=== PATIENT | female | born 2000 | race Asian ===

== ENCOUNTER 2018-07-03 21:51 | Emergency (ER) | payer OTHER ==
[2018-07-03 22:09] VITALS: BP 120/82
--- NOTE | 2018-07-03 23:06 | UC ---
Hand/Wrist HPI - HPI Summary HPI Summary: WAS SNOWBOARDING AT [employer] WHEN SHE FELL AND LANDED ON HER LEFT WRIST. HAS PAIN. - History Of Current Complaint Chief Complaint: UCUpperExtremity Stated Complaint: WRIST INJURY Time Seen by Provider: 07/03/18 22:04 Hx Obtained From: Patient Hx Last Menstrual Period: 07/01/2018 Onset/Duration: Sudden Onset, Lasting Hours, Still Present Severity Initially: Moderate Severity Currently: Moderate Pain Intensity: 7 Pain Scale Used: 0-10 Numeric Character Of Pain: Sharp Aggravating Factor(s): Movement Alleviating Factor(s): Rest, Ice Related History: Dominant Hand Right - Allergies/Home Medications Allergies/Adverse Reactions: Allergies Allergy/AdvReac Type Severity Reaction Status Date / Time No Known Allergies Allergy Verified 07/03/18 22:10 PMH/Surg Hx/FS Hx/Imm Hx Previously Healthy: Yes - Surgical History Surgical History: None - Family History Known Family History: Positive: Non-Contributory - Social History Alcohol Use: None Substance Use Type: None Smoking Status (MU): Never Smoked Tobacco Review of Systems All Other Systems Reviewed And Are Negative: Yes Constitutional: Positive: Negative Skin: Positive: Negative Respiratory: Positive: Negative Cardiovascular: Positive: Negative Gastrointestinal: Positive: Negative Musculoskeletal: Positive: Arthralgia, Decreased ROM Physical Exam Triage Information Reviewed: Yes Appearance: Well-Appearing, No Pain Distress, Well-Nourished Vital Signs: Initial Vital Signs Temp 99.1 F 07/03/18 22:06 Pulse 80 07/03/18 22:06 Resp 18 07/03/18 22:06 BP 120/82 07/03/18 22:06 Pulse Ox 98 07/03/18 22:06 Vital Signs Reviewed: Yes Eyes: Positive: Conjunctiva Clear ENT: Positive: Hearing grossly normal Neck: Positive: Supple Respiratory: Positive: No respiratory distress, No accessory muscle use Cardiovascular: Positive: Pulses Normal Abdomen Description: Positive: Soft Musculoskeletal: Positive: No Edema, ROM Limited @ - LEFT WRIST, Other: - TTP DISTAL RADIUS Neurological: Positive: Alert Psychological: Positive: Age Appropriate Behavior Skin: Negative: Rashes Diagnostics - Radiology LEFT WRIST XRAY Radiology Interpretation Completed By: ED Physician Summary of Radiographic Findings: NONDISPLACED FRACTURE DISTAL RADIUS Hand/Wrist Course/Dx - Differential Dx/Diagnosis Provider Diagnosis: Nondisplaced fracture of distal end of left radius Discharge - Sign-Out/Discharge Documenting (check all that apply): Patient Departure All imaging exams completed and their final reports reviewed: No - Discharge Plan Condition: Stable Disposition: HOME Prescriptions: HYDROcodone/ACETAMIN 5-325 MG* [[place] 5-325 TAB*] 1 tab PO Q8H PRN #6 tab MDD 2 PRN Reason: Pain Patient Education Materials: Wrist Fracture in Adults (ED) Forms: *Gen. Provider Communication Referrals: Malachi Abreu MD [Medical Doctor] - 2 Days Additional Instructions: XRAY TODAY SHOWS A FRACTURE OF YOUR DISTAL RADIUS ON MY PRELIMINARY READ. OFFICIAL RADIOLOGY READ IS PENDING AND WE WILL CALL YOU TOMORROW IF THE RADIOLOGY READ DIFFERS. CALL ORTHOPEDICS TOMORROW FOR A FOLLOW-UP APPT. WEAR THE SPLINT UNTIL SEEN BY ORTHO. IBUPROFEN NEEDED FOR PAIN. HYDROCODONE SPARINGLY FOR BREAKTHROUGH. - Billing Disposition and Condition Condition: STABLE Disposition: Home
--- NOTE | 2018-07-04 07:37 | UC ---
- EKG/XRAY/CT Xray Comments: wet read correct Course/Dx - Diagnoses Provider Diagnoses: Nondisplaced fracture of distal end of left radius Discharge - Sign-Out/Discharge Documenting (check all that apply): Post-Discharge Follow Up All imaging exams completed and their final reports reviewed: Yes - Discharge Plan Condition: Stable Disposition: HOME Prescriptions: HYDROcodone/ACETAMIN 5-325 MG* [[place] 5-325 TAB*] 1 tab PO Q8H PRN #6 tab MDD 2 PRN Reason: Pain Patient Education Materials: Wrist Fracture in Adults (ED) Forms: *Gen. Provider Communication Referrals: Malachi Abreu MD [Medical Doctor] - 2 Days Additional Instructions: XRAY TODAY SHOWS A FRACTURE OF YOUR DISTAL RADIUS ON MY PRELIMINARY READ. OFFICIAL RADIOLOGY READ IS PENDING AND WE WILL CALL YOU TOMORROW IF THE RADIOLOGY READ DIFFERS. CALL ORTHOPEDICS TOMORROW FOR A FOLLOW-UP APPT. WEAR THE SPLINT UNTIL SEEN BY ORTHO. IBUPROFEN NEEDED FOR PAIN. HYDROCODONE SPARINGLY FOR BREAKTHROUGH. - Billing Disposition and Condition Condition: STABLE Disposition: Home
== END 2018-07-03 23:00 | disposition home or self-care (01) ==
LOC: UCEAST 21:51
DX: S52.572A Other intraarticular fracture of lower end of left radius, initial encounter for closed fracture (principal); W19.XXXA Unspecified fall, initial encounter; Y93.23 Activity, snow (alpine) (downhill) skiing, snowboarding, sledding, tobogganing and snow tubing; Y92.9 Unspecified place or not applicable
CPT/HCPCS: 99203; G0463